=== PATIENT | male | born 1955 | race Caucasian/White ===

== ENCOUNTER 2017-07-20 07:04 | Day surgery (SDC) | payer OTHER ==
--- NOTE | 2017-07-19 13:30 | PREOPHP ---
DATE OF ADMISSION: 07/20/2017 HISTORY OF PRESENT ILLNESS: This 62-year-old patient is admitted for elective cataract surgery of t he left eye. The patient has had decreased vision for a period of approximately 1 year without prio r history of eye disease or injury. The patient has a 20-year history of insulin-dependent diabetes mellitus, as well as systemic hypertension and neuropathy. CURRENT MEDICATIONS: Include: 1. Metformin. 2. Lisinopril. 3. Lovastatin. 4. Glimepiride. 5. Gabapentin. 6. Insulin (Lantus and Humalog). ALLERGIES: THERE ARE NO KNOWN ALLERGIES. PHYSICAL EXAMINATION: The visual acuity best corrected is 20/40 in the right eye and 20/80 in the l eft eye. Slit lamp examination reveals nuclear sclerotic and posterior subcapsular cataracts, great er in the left eye than the right eye. Applanation tonometry is 20 mmHg. Examination of the retina appears within normal limits without evidence of diabetic retinopathy. DIAGNOSIS: Posterior subcapsular cataract, left eye. PLAN: Cataract extraction with lens implant, left eye. The risks and alternatives to the surgery h ave been discussed with the patient, as well as the hopeful improvement of visual acuity leading to greater ability to perform activities of daily living. The patient understands this and agrees to [place] with surgery. Dictated By: DENIA ALVARES/MARTY Conf#: [id number] DID#: [id number]
[2017-07-20] VITALS (7 sets, daily range): BP systolic 122–150; BP diastolic 81–94; PULSE 80–89; RESP 20; Ht 167.6 cm; Wt 103.0 kg
[~2017-07-20] VITALS: Ht 167.6 cm; Wt 103.0 kg
[~2017-07-20 07:04] MED LIST: CYCLOPENTOLATE/PHENYLEPH 2 ML OPH OPER SCH; DICL75TA2; DICLOFENAC 0.1% 2.5 ML OPH OPER SCH; GABA-528 PO; INSULIN HUMALOG SQ; INSULIN LANTUS SQ; LISI20TA11 PO; LOVA20TA PO; METF500T3 PO; MOXIFLOXACIN 0.5% 3 ML OPH OPER SCH; SOD CHLORIDE 0.9% 1,000 ML IV SCH; TROPICAMIDE 1% 3ML OPH OPER SCH
[2017-07-20] MEDS ORDERED: METF1000 PO (08:01)
[2017-07-20] MEDS ORDERED: LISI40TA9 PO (08:01)
[2017-07-20] MEDS ORDERED: LOVA20TA PO (08:02)
[2017-07-20] MEDS ORDERED: LANT3I SC (08:03)
[2017-07-20] MEDS ORDERED: GLIM4TAB PO (08:03)
[2017-07-20] MEDS ORDERED: INSU200I SQ (08:04)
[2017-07-20] MEDS ORDERED: CEFAZOLIN 1 GM INJ ONE (09:07)
[2017-07-20] MEDS ORDERED: CARBACHOL 0.01% 1.5 ML OPH INJ ONE (09:07)
[2017-07-20] MEDS ORDERED: DEXAMETHASONE 4 MG/ML 1 ML INJ ONE (09:07)
[2017-07-20] MEDS ORDERED: PROPOFOL 20 ML ONE (09:14)
--- NOTE | 2017-07-20 09:59 | SIPON ---
Date/Time of Note Date/Time of Note DATE: 07/20/17 TIME: 09:58 Operative Report Preoperative Diagnosis cataract os Postoperative Diagnosis same Operation/Procedure Performed cataract extraction lens implant os Surgeon B Tiburcio physician's assistant none Anesthesia: MAC Estimated blood loss: none Transfusion Required none Specimen none Grafts/Implants posterior chamber lens implant Complications none DENIA RAMOS MD Jul 20, 2017 09:59
[2017-07-20] MEDS ORDERED: LABETALOL HCL 20MG INJ IV PRN (10:00)
[2017-07-20] MEDS ORDERED: ONDANSETRON 4 MG INJ IV PRN (10:00)
[2017-07-20] MEDS ORDERED: HYDROmorphONE (0.2 MG/ML) 10ML SYG IV PRN ×3 (10:00)
[2017-07-20] MEDS ORDERED: MEPERIDINE 25 MG INJ IV PRN (10:00)
[2017-07-20] MEDS ORDERED: hydrALAzine 20 MG INJ IV PRN (10:00)
[2017-07-20] MEDS ORDERED: FENTAnyl 50 MCG/ML VIAL IV PRN ×2 (10:00)
--- NOTE | 2017-07-20 12:18 | OPR ---
DATE OF OPERATION: 07/20/2017 PREOPERATIVE DIAGNOSIS: Cataract, left eye. POSTOPERATIVE DIAGNOSIS: Cataract, left eye. OPERATION PERFORMED: Cataract extraction with lens implant, left eye. SURGEON: Denia Dey MD ANESTHESIOLOGIST: Dr. Early ANESTHESIA: Local standby. PROCEDURE: The patient was brought to the operating room and placed on the table with an IV in plac e and the patient attached to an electronic device monitor. Oxygen was given via face mask. After some intravenous sedation was administered, local anesthesia was given using Xylocaine 2% with epinephrine, mixed with Marcaine 0.5%. This was given in a lid block and retrobulbar injection. The patient was then prepped and draped in the usual sterile manner. A wire lid speculum was inserted between the lids of the left eye. A Superblade was used to enter th e anterior chamber at the corneoscleral limbus at the 10:30 o'clock position. A separate incision wa s made using a 3.0-mm keratome which entered the corneoscleral junction at the 12 o'clock position. Through this 3-mm opening, an irrigating cystotome was introduced into the anterior chamber. The rosario mber was filled with Provisc and an anterior capsulotomy was performed. Balanced salt solution was t hen used for hydrodissection of the lens. A phacoemulsification handpiece was then brought into the field and introduced into the anterior chamber. The lens nucleus was emulsified using a deep groove and cracking the nucleus into quadrants. Following this, each quadrant was aspirated and emulsified at the pupillary margin. After this was completed, the irrigation/aspiration handpiece was brought to the field, introduced i nto the posterior chamber, and the lens cortical material was removed. When this was completed, maverick tional Viscoat was injected into the anterior and posterior chambers. The 3-mm opening had its internal lips enlarged, and then the posterior chamber intraocular lens hector suring 21.5 diopters (Bausch and Lomb Model LI61AO) was then injected into the posterior chamber usi ng the lens injector system. After the leading haptic was introduced into the capsular bag and the l ens optic was present in the center of the eye, the injector was removed and the trailing haptic was grasped with non-toothed forceps and introduced into the capsular fold superiorly. A Sinskey hook w as then used to rotate the intraocular lens so that the lips were oriented in the horizontal meridia n. One 10-0 nylon suture was placed across the wound. Prior to tying, the irrigation/aspiration handpiece was reintroduced into the anterior chamber to re move the Viscoat. Miochol was instilled to constrict the pupil, and then the 10-0 nylon suture was t ied. The ends were cut short and then the knot was buried. Then, 0.5 mL of dexamethasone and 0.5 mL of Ancef were injected into the sub-Tenon space in the infe rior fornix. Ciloxan drops were then placed on the surface of the eye. The speculum was removed and a patch was applied. The patient then left the operating room in satisfactory condition. Dictated By: DENIA ALVARES/MRATY Conf#: [id number] DID#: [id number]
== END 2017-07-20 10:57 | disposition home or self-care (01) ==
LOC: SDS 07:04
PROVIDERS: ATTEND Ophthalmology
DX: H25.12 Age-related nuclear cataract, left eye (principal); I10 Essential (primary) hypertension; E11.9 Type 2 diabetes mellitus without complications; E66.01 Morbid (severe) obesity due to excess calories
CPT/HCPCS: 66984; 82962; J0690; J1100; J7030; V2632; Z7512; Z7610

== ENCOUNTER → 2017-10-12 | Outpatient (CLI) | END | disposition home or self-care (01) ==